=== PATIENT | female | born 1985 | race Caucasian/White ===

== ENCOUNTER 2017-10-01 19:46 | Emergency (ER) | payer BC ==
--- NOTE | 2017-10-01 20:01 | PDOC ---
History of Present Illness - General History Source: Patient Exam Limitations: No Limitations - History of Present Illness Initial Comments: 10/01/17 20:46 The patient is a 32 year old female with past medical history of B12 deficiency presents to the emergency department s/p episodes of lightheadedness and numbness. The patient reports an onset of lightheadedness, numbness and visions changes manifested around 7:05 PM. The patient states prior to the episodes she was watching TV when vision flashes and blurred vision, mainly to the left eye occured. 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 The patient recalls intakes of eggs, beans, 2 cups of coffee bloody uriah and 1 bottle of beer throughout the day. The patient reports going to the doctor on for a cough. The physician reported her thyroid seemed enlarged, recommended her for an ultrasound and chest X-ray. The patient reports getting her blood drawn on and states she was bleeding alot after the process. Denies chest pain or sob. Denies abdominal pain or back pain. Denies fever, chills, cough. Denies nausea or vomiting. Denies diarrhea or constipation. Allergies: NKDA Social history: The patient denies history of smoking or recreational drugs use. Reports social use of alcohol. Surgical history: [place] teeth extraction. LMP: a week and half ago. PCP: None reported <Clementine Rinaldi - Last Filed: 10/01/17 20:46> <Yaa Moralez - Last Filed: 10/02/17 01:32> - General Chief Complaint: Difficulty with Vision Stated Complaint: NUMBNESS Time Seen by Provider: 10/01/17 20:00 Past History <Clementine Rinaldi - Last Filed: 10/01/17 20:46> <Yaa Moralez - Last Filed: 10/02/17 01:32> - Past Medical History Allergies/Adverse Reactions: Allergies Allergy/AdvReac Type Severity Reaction Status Date / Time No Known Allergies Allergy Verified 10/01/17 20:02 Home Medications: Ambulatory Orders NK [No Known Home Medication] 10/01/17 Review of Systems - Review of Systems Able to Perform ROS?: Yes Comments:: 10/01/17 20:50 GENERAL/CONSTITUTIONAL: No fever or chills. (+) Left sided weakness. HEAD, EYES, EARS, NOSE AND THROAT: (+)vision flashes, blurred vision.. No ear pain or discharge. No sore throat. CARDIOVASCULAR: No chest pain or shortness of breath. RESPIRATORY: No cough, wheezing, or hemoptysis. GASTROINTESTINAL: No nausea, vomiting, diarrhea or constipation. GENITOURINARY: No dysuria, frequency, or change in urination. MUSCULOSKELETAL: No joint or muscle swelling or pain. No neck or back pain. SKIN: No rash NEUROLOGIC: (+) headache/pressure (mainly to the top of the head). No vertigo, loss of consciousness, or change in strength/sensation. ENDOCRINE: No increased thirst. No abnormal weight change. HEMATOLOGIC/LYMPHATIC: No anemia, easy bleeding, or history of blood clots. ALLERGIC/IMMUNOLOGIC: No hives or skin allergy. <Clementine Rinaldi - Last Filed: 10/01/17 20:46> *Physical Exam - Vital Signs Last Vital Signs Temp Pulse Resp BP Pulse Ox 98.1 F 81 20 138/81 98 10/01/17 20:02 10/01/17 20:02 10/01/17 20:02 10/01/17 20:02 10/01/17 20:02 - Physical Exam Comments: 10/01/17 20:51 GENERAL: Awake, alert, and fully oriented, in no acute distress HEAD: No signs of trauma EYES: PERRLA, EOMI, sclera anicteric, conjunctiva clear ENT: Auricles normal inspection, hearing grossly normal, nares patent, oropharynx clear without exudates. Moist mucosa NECK: Normal ROM, supple, no lymphadenopathy, JVD, or masses LUNGS: Breath sounds equal, clear to auscultation bilaterally. No wheezes, and no crackles HEART: Regular rate and rhythm, normal S1 and S2, no murmurs, rubs or gallops ABDOMEN: Soft, nontender, normoactive bowel sounds. No guarding, no rebound. No masses EXTREMITIES: Normal range of motion, no edema. No clubbing or cyanosis. No cords, erythema, or tenderness NEUROLOGICAL: Cranial nerves II through XII grossly intact. Normal speech, normal gait SKIN: Warm, Dry, normal turgor, no rashes or lesions noted. <Clementine Rinaldi - Last Filed: 10/01/17 20:46> ED Treatment Course - LABORATORY CBC & Chemistry Diagram: 10/01/17 20:30 10/01/17 20:30 <Clementine Rinaldi - Last Filed: 10/01/17 20:46> - LABORATORY CBC & Chemistry Diagram: 10/01/17 20:30 10/01/17 20:30 <Yaa Moralez - Last Filed: 10/02/17 01:32> Medical Decision Making - Medical Decision Making 10/01/17 20:19 Pt comes today with an episode of numbness on the left side of her body and blurry vision on the left side of her visual field. Now she has no symptoms. The sensation began around 7:05. Pt States that she went out to [employer] today and had a beer and a bloody uriah with her meal. Woke up later and had a cup of coffee. SHe hadn't had anything else to eat today. Pt has no PMHx. SHe has a OAKES at the top of her head at present. She has no hx of migraines. Neuro exam is completely normal; babinski down going, romberg normal, finger to nose and heel to toe normal. CN 2- 12 intact. Pt has excellent strength and normal refelxes throughout. She has no nustagmus and all visual flynn vision intact. Pt hasnormal physical exam. Labs pending. Menses 2 weeks ago. Unknown if she is now. UA/UCG pending. Head CT and CXR ordered. EKG pending 10/01/17 22:21 Pt is feeling better; CXR is normal. CT head pending 10/02/17 00:[address] scan never sent to [facility]. I will send the images now. 10/02/17 01:30 Patient Name: BEATRIZ CASIANO THIS IS A PRELIMINARY REPORT FROM [facility] DATE OF SERVICE: 2017-10-01 22:51:39 IMAGES: 240 EXAM: HEAD CT WITHOUT CONTRAST HISTORY: Headache and left arm numbness with visual disturbance COMPARISON: None. FINDINGS: The ventricular system is midline and nondilated. The sulcal pattern is normal for the patient's age. There is no bleed, mass, extra-axial fluid collection or mass effect. No skull fracture or skull lesion is identified. The visualized paranasal sinuses and mastoid air cells are clear. IMPRESSION: Normal exam. Pt will be discharged home. <Yaa Moralez - Last Filed: 10/02/17 01:32> *DC/Admit/Observation/Transfer - Attestations Scribe Attestion: 10/01/17 20:51 Documentation prepared by Clementine Rinaldi, acting as manager medical for Yaa Moralez MD. <Clementine Rinaldi - Last Filed: 10/01/17 20:46> - Discharge Dispostion Decision to Admit order: No <Yaa Moralez - Last Filed: 10/02/17 01:32> Diagnosis at time of Disposition: Paresthesia and pain of left extremity, Vision disturbance - Discharge Dispostion Disposition: HOME Condition at time of disposition: Stable - Referrals Referrals: Dixon Parra MD [Staff Physician] - - Patient Instructions Printed Discharge Instructions: DI for Visual Field Disturbances - Post Discharge Activity Forms/Work/School Notes: Back to Work
[2017-10-01] MEDS ORDERED: SODIUM CHLORIDE 0.9% 500 ML INFUS.BAG IV ONE (20:03)
[2017-10-01 20:06] VITALS: BMI 26.6
[2017-10-01 20:42] LABS: BASO % 0.7 % (0-2.0); EOS % 2.9 % (0-4.5); HEMATOCRIT 40.1 % (32.4-45.2); HEMOGLOBIN 13.5 GM/dL (10.7-15.3); LYMPH % 20.2 % (8-40); MCH 30.5 pg (25.7-33.7); MCHC 33.5 g/dl (32.0-36.0); MEAN PLT VOLUME 7.1 fl (7.5-11.1); MONO % 7.7 % (3.8-10.2); NEUT % 68.5 % (42.8-82.8); PLATELET COUNT 382 K/MM3 (134-434); RBC 4.41 M/mm3 (3.60-5.2); WHITE BLOOD COUNT 9.2 K/mm3 (4.0-10.0)
[2017-10-01 20:56] LABS: URINE APPEARANCE SLCLOUDY; URINE BILIRUBIN NEGATIVE (<2.0 mg/dL); URINE BLOOD NEGATIVE (NEGATIVE); URINE COLOR LTYELLOW; URINE GLUCOSE (UA) NEGATIVE (NEGATIVE); URINE KETONE TRACE (NEGATIVE); URINE NITRITE NEGATIVE (NEGATIVE); URINE PROTEIN NEGATIVE (NEGATIVE); URINE UROBILINOGEN NEGATIVE mg/dL (0.2-1.0)
[2017-10-01 20:58] LABS: URINE LEUK ESTERASE 1+ (NEGATIVE)
[2017-10-01 21:03] LABS: URINE BACTERIA FEW /hpf (NONE SEEN)
[2017-10-01 21:04] LABS: ALBUMIN 3.9 g/dl (3.4-5.0); ANION GAP 7 (8-16); BILIRUBIN,TOTAL 0.2 mg/dL (0.2-1.0); BLOOD UREA NITROGEN 9 mg/dL (7-18); CALCIUM 8.7 mg/dL (8.5-10.1); CHLORIDE 104 mmol/L (98-107); CO2 28 mmol/L (21-32); CREATININE 0.9 mg/dL (0.55-1.02); GLUCOSE,RANDOM 98 mg/dL (74-106); POTASSIUM 3.7 mmol/L (3.5-5.1); SGOT/AST 12 U/L (15-37); SGPT/ALT 18 U/L (12-78); SODIUM 139 mmol/L (136-145); TOT PROT 7.5 g/dl (6.4-8.2)
[2017-10-01 21:04] LABS: EPI CELLS RARE /HPF (FEW)
[2017-10-01 21:12] LABS: ALK PHOS 60 U/L (45-117)
[2017-10-01 21:15] LABS: INR 1.03 (0.82-1.09); PROTHROMBIN TIME (PATIENT) 11.6 SEC (9.7-13.0)
[2017-10-02 02:51] VITALS: BP 138/80; PULSE 80; TEMP 98
--- NOTE | 2017-10-02 11:22 | EKG ---
Test Reason : Blood Pressure : / mmHG Vent. Rate : 083 BPM Atrial Rate : 083 BPM P-R Int : 176 ms QRS Dur : 094 ms QT Int : 388 ms P-R-T Axes : 058 054 045 degrees QTc Int : 455 ms NORMAL SINUS RHYTHM NORMAL ECG NO PREVIOUS ECGS AVAILABLE Confirmed by ANALI SHELL MD ([id number]) on 10/02/2017 11:21:55 AM Referred By: Confirmed By:ANALI SHELL MD
== END 2017-10-02 07:02 | disposition home or self-care (01) ==
LOC: JER 19:46
DX: R20.2 Paresthesia of skin (principal); H53.8 Other visual disturbances
CPT/HCPCS: 36415; 70450-TC; 71046-TC-FY; 80053; 81003; 81015; 84443; 84703; 85025; 85610; 85730; 93005; 93010; 99284-25

== ENCOUNTER 2022-02-28 10:15 | Emergency (ER) | payer BC ==
[2022-02-28 10:25] VITALS: BP 151/97; PULSE 75; RESP 18; TEMP 98.5; BMI 28.3
[2022-02-28] MEDS ORDERED: METOCLOPRAMIDE HCL INJECTION 10 MG/2 ML VIAL IVPB ONE (11:56)
[2022-02-28] MEDS ORDERED: SODIUM CHLORIDE 0.9% 500 ML INFUS.BAG IV ONE (11:56)
[2022-02-28] MEDS ORDERED: METOCLOPRAMIDE HCL INJECTION 10 MG/2 ML VIAL ONE (12:23)
[2022-02-28 12:29] LABS: BASO % 0.6 % (0-2.0); EOS % 2.4 % (0-4.5); HEMATOCRIT 38.1 % (32.4-45.2); MCHC 34.2 g/dl (32.0-36.0); MEAN CELL VOLUME 93.6 fl (80-96); MEAN PLT VOLUME 7.1 fl (7.5-11.1); MONO % 8.1 % (3.8-10.2); NEUT % 63.9 % (42.8-82.8); PLATELET COUNT 289 10^3/uL (134-434); RBC 4.07 M/mm3 (3.60-5.2); RDW 12.8 % (11.6-15.6); WHITE BLOOD COUNT 5.1 K/mm3 (4.0-10.0)
[2022-02-28 12:49] LABS: ALBUMIN 3.9 g/dl (3.4-5.0); BLOOD UREA NITROGEN 8.6 mg/dL (7-18); CALCIUM 9.2 mg/dL (8.5-10.1)
[2022-02-28 12:52] LABS: CREATININE 0.8 mg/dL (0.55-1.3)
[2022-02-28 12:54] LABS: BILIRUBIN,TOTAL 0.4 mg/dL (0.2-1); TOT PROT 7.2 g/dl (6.4-8.2)
[2022-02-28 13:26] LABS: EPI CELLS 6 /uL (0-25.1); HYALINE CASTS 0 /uL (0-3.1); PH,URINE 7.5 (5.0-8.0); URINE APPEARANCE CLEAR; URINE BACTERIA 288 /uL (0-1359); URINE BILIRUBIN NEGATIVE (NEGATIVE); URINE COLOR YELLOW; URINE GLUCOSE (UA) NEGATIVE (NEGATIVE); URINE KETONE NEGATIVE (NEGATIVE); URINE LEUK ESTERASE NEGATIVE (NEGATIVE); URINE NITRITE NEGATIVE (NEGATIVE); URINE PROTEIN NEGATIVE (NEGATIVE); URINE RBC 66 /uL (0-23.9); URINE UROBILINOGEN 0.2 mg/dL (0.2-1.0); URINE WBC 3 /uL (0-25.8)
[2022-02-28 13:33] LABS: HCG,QUALITATIVE URINE Negative
== END 2022-02-28 15:04 | disposition home or self-care (01) ==
LOC: JER 10:15
PROC: 3E033GC Introduction of Other Therapeutic Substance into Peripheral Vein, Percutaneous Approach (ICD-10-PCS; principal; 2022-02-28)
DX: R51.9 Headache, unspecified (principal)
CPT/HCPCS: 0241U-QW; 36415; 80053; 81003; 83735; 84443; 84703; 85025; 93005; 93010; 99284-25

== ENCOUNTER 2022-05-09 04:42 | Day surgery (SDC) | payer BC ==
[2022-05-04 10:01] VITALS: BMI 28.3
[2022-05-09] MEDS ORDERED: FENTANYL CITRATE/PF 50 MCG/ML VIAL ONE (13:10)
[2022-05-09] MEDS ORDERED: PROPOFOL 20 ML ONE (13:10)
[2022-05-09] MEDS ORDERED: MIDAZOLAM HCL 2 MG/2 ML SINGLE DOSE VIAL ONE (13:10)
[2022-05-09] MEDS ORDERED: ONDANSETRON 4 MG/2 ML VIAL ONE (13:25)
[2022-05-09] MEDS ORDERED: DEXAMETHASONE SOD PHOSPHATE 4 MG/1 ML VIAL ONE (13:25)
[2022-05-09] MEDS ORDERED: ceFAZolin SODIUM 1 GM VIAL ONE (13:26)
[2022-05-09] MEDS ORDERED: ceFAZolin SODIUM 1 GM VIAL IVPB ONE (13:29)
[2022-05-09] MEDS ORDERED: oxyCODONE HCL 5 MG TABLET PO PRN (14:05)
[2022-05-09] MEDS ORDERED: ONDANSETRON 4 MG/2 ML VIAL IVPUSH PRN (14:05)
[2022-05-09 16:13] VITALS: RESP 20; TEMP 97.2
[2022-05-09 17:32] VITALS: BP 118/73; PULSE 80
== END 2022-05-09 17:00 | disposition home or self-care (01) ==
LOC: JASU-SURG 04:42
PROVIDERS: ATTEND Obstetrics & Gynecology
PROC: 0UB98ZZ Excision of Uterus, Via Natural or Artificial Opening Endoscopic (ICD-10-PCS; principal; 2022-05-09 10:30)
DX: N84.0 Polyp of corpus uteri (principal); Z80.49 Family history of malignant neoplasm of other genital organs
CPT/HCPCS: 81025; 88305-TC; 94760